=== PATIENT | female | born 1990 | race Caucasian/White ===

== ENCOUNTER 2019-07-19 07:30 | Inpatient (IN) | payer OTHER ==
[2019-07-19] MEDS ORDERED: GLYCOPYRROLATE 1 MG/5 ML VIAL ONE (08:16)
[2019-07-19] MEDS ORDERED: VECURONIUM BROMIDE INJ 10 MG VIAL IV ONE (08:16)
[2019-07-19] MEDS ORDERED: SUCCINYLCHOLINE CHLORIDE INJ 200 MG/10 ML VIAL ONE (08:16)
[2019-07-19] MEDS ORDERED: NEOSTIGMINE METHYLSULFATE 10 MG/10 ML VIAL ONE (08:16)
[2019-07-19 08:30] LABS: ABSOLUTE BASOPHILS # (AUTO) 0.1 10^3/uL (0.0-0.2); ABSOLUTE EOSINOPHILS # (AUTO) 0.2 10^3/uL (0.0-0.6); ABSOLUTE LYMPHOCYTES (AUTO) 2.6 10^3/uL (0.5-4.7); ABSOLUTE NEUT (AUTO) 12.8 10^3/uL (1.7-8.2); BASOPHILS % (AUTO) 0.4 % (0-2); EOSINOPHILS % (AUTO) 0.9 % (0-6); HEMATOCRIT 39.4 % (36.0-47.0); HEMOGLOBIN 13.4 g/dL (12.0-15.5); LYMPHOCYTES % (AUTO) 15.7 % (13-45); MEAN CORPUSCULAR HEMOGLOBIN 28.9 pg (27.0-33.4); MEAN CORPUSCULAR HGB CONC 33.9 g/dL (32.0-36.0); MEAN CORPUSCULAR VOLUME 85 fl (80-97); MONOCYTES % (AUTO) 5.8 % (3-13); PLATELET COUNT 349 10^3/uL (150-450); RED BLOOD COUNT 4.63 10^6/uL (3.72-5.28); RED CELL DISTRIBUTION WIDTH 12.9 % (11.5-14.0); SEGMENTED NEUTROPHILS % (AUTO) 77.2 % (42-78); TOTAL CELLS COUNTED % (AUTO) 100 %; WHITE BLOOD COUNT 16.6 10^3/uL (4.0-10.5)
[2019-07-19 08:51] LABS: APPEARANCE,URINE CLEAR; BILIRUBIN,URINE NEGATIVE (NEGATIVE); COLOR,URINE YELLOW; GLUCOSE, URINE NEGATIVE (NEGATIVE); KETONES,URINE NEGATIVE (NEGATIVE); LEUKOCYTE ESTERASE,URINE NEGATIVE (NEGATIVE); NITRITE,URINE NEGATIVE (NEGATIVE); PROTEIN,URINE NEGATIVE (NEGATIVE); URINE SPECIFIC GRAVITY 1.021; UROBILINOGEN,URINE NEGATIVE mg/dL (<2.0)
[2019-07-19 08:52] LABS: ALBUMIN 4.3 g/dL (3.5-5.0); ALKALINE PHOSPHATASE 79 U/L (38-126); ANION GAP 9 (5-19); ASPARTATE AMINO TRANSFERASE 28 U/L (14-36); BILIRUBIN,DIRECT 0.1 mg/dL (0.0-0.4); BILIRUBIN,TOTAL 0.9 mg/dL (0.2-1.3); BLOOD UREA NITROGEN 9 mg/dL (7-20); CALCIUM 9.5 mg/dL (8.4-10.2); CARBON DIOXIDE 26 mmol/L (22-30); CHLORIDE 104 mmol/L (98-107); GLUCOSE 108 mg/dL (75-110); POTASSIUM 4.3 mmol/L (3.6-5.0); TOTAL PROTEIN 7.9 g/dL (6.3-8.2)
--- NOTE | 2019-07-19 10:11 | ER Document Report ---
ED General - General Chief Complaint: Lower Abdominal Pain Stated Complaint: ABDOMINAL PAIN Time Seen by Provider: 07/19/19 08:28 Mode of Arrival: Ambulatory Information source: Patient Notes: This 29-year-old female presents to the emergency department with reports that last week she had some nausea vomiting fever but those symptoms went away and for the past 3 days she has had some right lower quad abdominal pain. She describes the pain as dull and achy. She reports the pain was so bad that it woke her up from sleep. She reports the pain started around the periumbilical and radiates down to the right lower quad now. She reports at first it radiated to the mid lower abdomen. She denies vaginal discharge/ vaginal pain/pain with void. Patient reports when she was like 9 or 10 years old she did have an appendicitis but they did not take the appendix out. She reports they treated it with medications. She denies reports last menstrual period was last week. Reports she has not had anything to eat or drink this morning. TRAVEL OUTSIDE OF THE [place] IN LAST 30 DAYS: No - HPI Onset: Last week Onset/Duration: Sudden, Persistent Quality of pain: Achy, Dull Associated symptoms: Fever, Nausea, Vomiting Exacerbated by: Supine Relieved by: Denies Similar symptoms previously: No Recently seen / treated by doctor: No - Related Data Allergies/Adverse Reactions: No Known Allergies Allergy (Verified 07/19/19 07:56) Past Medical History - General Information source: Patient Last Menstrual Period: 07/13/2019 - Social History Smoking Status: Never Smoker Chew tobacco use (# tins/day): No Frequency of alcohol use: None Drug Abuse: None Family History: None Patient has suicidal ideation: No Patient has homicidal ideation: No - Medical History Medical History: Negative Surgical Hx: Negative Review of Systems - Review of Systems Notes: Review HPI for review of systems., All other systems negative Physical Exam - Vital signs Vitals: Temp Pulse Resp BP Pulse Ox 98.0 F 102 H 18 140/74 H 100 07/19/19 07:34 07/19/19 07:34 07/19/19 07:34 07/19/19 07:34 07/19/19 07:34 - General General appearance: Appears well, Alert, Anxious In distress: None - HEENT Head: Normocephalic, Atraumatic Eyes: Normal Conjunctiva: Normal Extraocular movements intact: Yes Eyelashes: Normal Pupils: PERRL Ears: Normal External canal: Normal Tympanic membrane: Normal Mucous membranes: Moist Pharynx: Normal Neck: Normal, Supple. No: Lymphadenopathy - Respiratory Respiratory status: No respiratory distress Chest status: Nontender Breath sounds: Normal Chest palpation: Normal - Cardiovascular Rhythm: Regular Heart sounds: Normal auscultation Murmur: No - Abdominal Inspection: Normal Distension: No distension Bowel sounds: Normal Tenderness: Tender Organomegaly: No organomegaly Adult front & back diagram: 1 - Reports pain with palpation - Back Back: Normal, Nontender - Extremities General upper extremity: Normal ROM General lower extremity: Normal ROM - Neurological Neuro grossly intact: Yes Cognition: Normal Orientation: AAOx4 [place] Coma Scale Eye Opening: Spontaneous [place] Coma Scale Verbal: Oriented [place] Coma Scale Motor: Obeys Commands [place] Coma Scale Total: 15 Speech: Normal - Psychological Associated symptoms: Normal affect, Normal mood - Skin Skin Temperature: Warm Skin Moisture: Dry Skin Color: Normal Course - Re-evaluation Re-evalutation: 07/19/19 11:24 Patient with WBCs of 16.6. CT shows appendicitis. Patient instructed on results. Instructed on surgical consult. She verbalized understanding all instructions. Dr. Nelson consulted will be down to evaluate patient. Abdomen/Pelvis CT 07/19/19 09:01 IMPRESSION: Findings as above consistent and an acute appendicitis. There is no periappendiceal abscess. Laboratory 07/19/19 07/19/19 07/19/19 08:10 08:10 08:35 WBC 16.6 H RBC 4.63 Hgb 13.4 Hct 39.4 MCV 85 MCH 28.9 MCHC 33.9 RDW 12.9 Plt Count 349 Lymph % (Auto) 15.7 Rooks % (Auto) 5.8 Eos % (Auto) 0.9 Baso % (Auto) 0.4 Absolute Neuts (auto) 12.8 H Absolute Lymphs (auto) 2.6 Absolute Monos (auto) 1.0 Absolute Eos (auto) 0.2 Absolute Basos (auto) 0.1 Seg Neutrophils % 77.2 Sodium 139.1 Potassium 4.3 Chloride 104 Carbon Dioxide 26 Anion Gap 9 BUN 9 Creatinine 0.50 L Est GFR ( Amer) > 60 Est GFR (MDRD) Non-Af > 60 Glucose 108 Calcium 9.5 Total Bilirubin 0.9 Direct Bilirubin 0.1 Neonat Total Bilirubin Not Reportable Neonat Direct Bilirubin Not Reportable Neonat Indirect Bili Not Reportable AST 28 ALT 26 Alkaline Phosphatase 79 Total Protein 7.9 Albumin 4.3 Lipase 51.9 Urine Color YELLOW Urine Appearance CLEAR Urine pH 6.0 Ur Specific [place] 1.021 Urine Protein NEGATIVE Urine Glucose (UA) NEGATIVE Urine Ketones NEGATIVE Urine Blood SMALL H Urine Nitrite NEGATIVE Urine Bilirubin NEGATIVE Urine Urobilinogen NEGATIVE Ur Leukocyte Esterase NEGATIVE Urine WBC (Auto) 1 Urine RBC (Auto) 2 Squamous Epi Cells Auto <1 Urine Mucus (Auto) FEW Urine Ascorbic Acid NEGATIVE Urine HCG, Qual NEGATIVE 07/19/19 11:40 Dr. Nelson in the emergency department requesting fluids and Unasyn. 07/19/19 14:31 - Vital Signs Vital signs: Temp Pulse Resp BP Pulse Ox 97.8 F 102 H 18 125/81 99 07/19/19 11:25 07/19/19 11:25 07/19/19 11:25 07/19/19 11:25 07/19/19 11:25 - Laboratory Result Diagrams: 07/19/19 08:10 07/19/19 08:10 Laboratory results interpreted by me: 07/19/19 07/19/19 07/19/19 08:10 08:10 08:35 WBC 16.6 H Absolute Neuts (auto) 12.8 H Creatinine 0.50 L Urine Blood SMALL H - Diagnostic Test Radiology reviewed: Image reviewed, Reports reviewed - Consults DR NELSON Time consulted: 11:24 Reason for consultation: 07/19/19 11:24 appy Consulted provider: will come to ER Discharge - Discharge Clinical Impression: Right lower quadrant abdominal pain, Appendicitis Condition: Stable Disposition: ADMITTED INPATIENT Admitting Provider: Surgicalist Unit Admitted: OR
--- NOTE | 2019-07-19 11:06 | RADIOLOGY REPORT (SQ) ---
EXAM DESCRIPTION: CT ABD/PELVIS WITH IV ONLY COMPLETED DATE/TIME: 07/19/2019 10:46 am REASON FOR STUDY: RLQ pain ? appy COMPARISON: None. TECHNIQUE: CT scan of the abdomen and pelvis performed using helical scanning technique with dynamic intravenous contrast injection. No oral contrast. Images reviewed with lung, soft tissue, and bone windows. Reconstructed coronal and sagittal MPR images reviewed. Delayed images for evaluation of the urinary system also acquired. All images stored on PACS. All CT scanners at this facility use dose modulation, iterative reconstruction, and/or weight based d osing when appropriate to reduce radiation dose to as low as reasonably achievable (ALARA). [facility]: Dose Right [facility]: CareDose [facility]: Dose Right [facility]: Teradose 4D [facility]: [employer] CONTRAST TYPE AND DOSE: Contrast/concentration: Isovue 350.00 mg/ml; Total Contrast Delivered: 80.0 ml; Total Saline Delivered: 54.9 ml RENAL FUNCTION: GFR > 60. RADIATION DOSE: CT Rad equipment meets quality standard of care and radiation dose reduction techniq ues were employed. CTDIvol: 6.4 - 8.6 mGy. DLP: 767 mGy-cm. LIMITATIONS: None. FINDINGS: LOWER CHEST: No acute findings. LIVER: The morphology of the liver is non cirrhotic. The portal veins are patent. There is no hepat ic mass. SPLEEN: No splenomegaly or splenic mass. PANCREAS: No abnormality. GALLBLADDER: No abnormality that is apparent on CT. ADRENAL GLANDS: No mass or asymmetry. RIGHT KIDNEY AND URETER: No solid masses. No calcifications. No hydronephrosis or hydroureter. LEFT KIDNEY AND URETER: No solid masses. No calcifications. No hydronephrosis or hydroureter. AORTA AND VESSELS: No aneurysm or dissection of the abdominal aorta. RETROPERITONEUM: No retroperitoneal adenopathy, hemorrhage or mass. BOWEL AND PERITONEAL CAVITY: No bowel obstruction, bowel wall thickening or pericolonic/ perienteric inflammation. There is no mesenteric adenopathy or omental inflammation. APPENDIX: There is a 6 x 5 mm appendicolith at the appendiceal orifice. The appendix itself is dilat ed and there is periappendiceal inflammatory fat stranding. There is no periappendiceal abscess or f ree intraperitoneal air. PELVIS: There is a trace amount of free fluid in the cul de sac. There is no other abnormality of th e uterus or adnexa that is apparent on CT. The urinary bladder is partially distended. ABDOMINAL WALL: No masses or hernias. BONES: No acute findings. OTHER: No other finding. IMPRESSION: Findings as above consistent and an acute appendicitis. There is no periappendiceal abs cess. TECHNICAL DOCUMENTATION: JOB ID: [id number] Quality ID # [id number]: Final reports with documentation of one or more dose reduction techniques (e.g., Au tomated exposure control, adjustment of the mA and/or kV according to patient size, use of iterative reconstruction technique) 2010 [employer]- All Rights Reserved Reading location - IP/workstation name: [email or web address]
[2019-07-19] MEDS ORDERED: AMPICILLIN SOD/SULBACTAM 3 GM VIAL IV ONE (11:42)
[2019-07-19] MEDS ORDERED: NORMAL SALINE 1000 ML 1,000 ML IV ONE (11:42)
[2019-07-19] MEDS ORDERED: BUPIVACAINE HCL 0.25 % INJ/PF (2.5 MG/1 ML) 30 ML VIAL ONE (11:44)
[2019-07-19] MEDS ORDERED: RINGERS SOLUTION,LACTATED 1,000 ML IV PRN (11:49)
--- NOTE | 2019-07-19 11:54 | PDOC H&P ---
History of Present Illness Admission Date/PCP: July 19, 2019 Patient complains of: Abdominal pain, anorexia History of Present Illness: KIT GIBBONS is a 29 year old female Presents emergency department via ground rescue complaining of a week history of abdominal pain, periumbilical, radiating to right lower quadrant, associated with anorexia. Patient initially felt this was related to her period, which subsequently came and went, without resolution. Because of persisting pain right lower quadrant, she was seen in the emergency room where she was found to have right lower quadrant tenderness, leukocytosis of 16,[address] scan of the abdomen and pelvis performed without oral contrast revealed findings consistent with acute appendicitis, early phlegmon. Surgery was consulted, patient was advised admission. Of note patient has a remote history of appendicitis at age 10, by report, managed nonoperatively. She denies history of gastrointestinal problems, history of trauma. Past Medical History Medical History: None Past Surgical History Past Surgical History: Reports: None Social History Information Source: Patient Smoking Status: Never Smoker Electronic Cigarette use?: No Frequency of Alcohol Use: None Hx Recreational Drug Use: No Family History Parental Family History Reviewed: No Children Family History Reviewed: No Sibling(s) Family History Reviewed.: No Medication/Allergy Home Medications: No Home Medications 07/19/19 Allergies/Adverse Reactions: No Known Allergies Allergy (Verified 07/19/19 07:56) Review of Systems Constitutional: PRESENT: as per HPI Eyes: ABSENT: visual disturbances Ears: ABSENT: hearing changes Cardiovascular: ABSENT: chest pain, dyspnea on exertion, edema, orthropnea, palpitations Respiratory: ABSENT: cough, hemoptysis Gastrointestinal: PRESENT: as per HPI. ABSENT: other - Patient denies history of constipation Genitourinary: PRESENT: other - Denies dysuria Musculoskeletal: ABSENT: joint swelling Integumentary: ABSENT: rash, wounds Neurological: ABSENT: abnormal gait, abnormal speech, confusion, dizziness, focal weakness, syncope Endocrine: ABSENT: cold intolerance, heat intolerance, polydipsia, polyuria Hematologic/Lymphatic: ABSENT: easy bleeding, easy bruising Physical Exam Vital Signs: Temp Pulse Resp BP Pulse Ox 97.8 F 102 H 18 125/81 99 07/19/19 11:25 07/19/19 11:25 07/19/19 11:25 07/19/19 11:25 07/19/19 11:25 Intake & Output 07/18/19 07/19/19 07/20/19 06:59 06:59 06:59 Weight 70.4 kg General appearance: PRESENT: no acute distress Head exam: PRESENT: normocephalic Eye exam: PRESENT: EOMI Ear exam: PRESENT: normal external ear exam Mouth exam: PRESENT: dry mucosa Neck exam: PRESENT: full ROM Respiratory exam: PRESENT: clear to auscultation darrin Cardiovascular exam: PRESENT: RRR Pulses: PRESENT: normal carotid pulses, normal radial pulses, normal femoral pulses, normal dorsalis pedis pul GI/Abdominal exam: PRESENT: diminished bowel sounds, other - Distinct right lower quadrant tenderness with guarding; no umbilical hernia Rectal exam: PRESENT: deferred Extremities exam: PRESENT: full ROM Musculoskeletal exam: PRESENT: full ROM Neurological exam: PRESENT: oriented to person, oriented to place, oriented to time, oriented to situation Psychiatric exam: PRESENT: appropriate affect Skin exam: PRESENT: dry Results Laboratory Results: 07/19/19 08:10 07/19/19 08:10 07/19/19 07/19/19 07/19/19 08:10 08:10 08:35 WBC 16.6 H RBC 4.63 Hgb 13.4 Hct 39.4 MCV 85 MCH 28.9 MCHC 33.9 RDW 12.9 Plt Count 349 Seg Neutrophils % 77.2 Sodium 139.1 Potassium 4.3 Chloride 104 Carbon Dioxide 26 Anion Gap 9 BUN 9 Creatinine 0.50 L Est GFR ( Amer) > 60 Glucose 108 Calcium 9.5 Total Bilirubin 0.9 AST 28 Alkaline Phosphatase 79 Total Protein 7.9 Albumin 4.3 Lipase 51.9 Urine Color YELLOW Urine Appearance CLEAR Urine pH 6.0 Ur Specific [place] 1.021 Urine Protein NEGATIVE Urine Glucose (UA) NEGATIVE Urine Ketones NEGATIVE Urine Blood SMALL H Urine Nitrite NEGATIVE Ur Leukocyte Esterase NEGATIVE Urine WBC (Auto) 1 Urine RBC (Auto) 2 Impressions: Abdomen/Pelvis CT 07/19/19 09:01 IMPRESSION: Findings as above consistent and an acute appendicitis. There is no periappendiceal abscess. Assessment & Plan - Diagnosis (1) Appendicitis Is this a current diagnosis for this admission?: Yes Plan: Impression: Acute abdominal pain localized right lower quadrant tenderness leukocytosis, CT scan findings consistent with acute appendicitis. No evidence of sepsis, hemodynamic instability. Recommendations: 1. Admit, IV fluids, IV antibiotics, plan laparoscopic, possible open appendectomy. This was discussed with patient, as well as her adoptive parents. I reviewed the risk benefits and alternatives of planned procedure. Patient and family expressed her understanding and agreed to proceed. 2. Anticipate 24 hours today. Hopefully patient can return to regular activities in 1 week. - Time Time Spent: 30 to 50 Minutes Critical Time spent with patient: Less than 15 minutes Medications reviewed and adjusted accordingly: Yes Anticipated discharge: Home - Inpatient Certification Based on my medical assessment, after consideration of the patient's comorbidities, presenting symptoms, or acuity I expect that the services needed warrant INPATIENT care.: Yes I certify that my determination is in accordance with my understanding of Medicare's requirements for reasonable and necessary INPATIENT services [42 CFR 412.3e].: Yes Medical Necessity: Need For IV Fluids, Need for Pain Control, Need for IV Antibiotics, Need for Surgery
[2019-07-19] MEDS ORDERED: KETOROLAC TROMETHAMINE 60 MG/2 ML SDV ONE (12:10)
[2019-07-19] MEDS ORDERED: PROPOFOL INJ 200 MG/20 ML VIAL IV ONE (12:11)
[2019-07-19] MEDS ORDERED: MIDAZOLAM 2 MG/2 ML INJ ONE (12:11)
[2019-07-19] MEDS ORDERED: ONDANSETRON HCL INJ/PF 4 MG/2 ML SDV ONE (12:11)
[2019-07-19] MEDS ORDERED: DEXAMETHASONE SOD PHOSPHATE INJ 4 MG/1 ML VIAL ONE (12:11)
[2019-07-19] MEDS ORDERED: FENTANYL CITRATE INJ/PF 100 MCG/2 ML AMPUL ONE (12:11)
[2019-07-19] MEDS ORDERED: BUPIVACAINE HCL 0.25 % INJ/PF (2.5 MG/1 ML) 30 ML VIAL INJ ONE (12:37)
[2019-07-19] MEDS ORDERED: OXYCODONE-ACETAMINOPHEN 5-325 MG TABLET PO PRN ×2 (13:09)
[2019-07-19] MEDS ORDERED: PROMETHAZINE HCL INJ 25 MG/1 ML VIAL IV PRN ×2 (13:09)
[2019-07-19] MEDS ORDERED: DIPHENHYDRAMINE HCL 50 MG/ML VIAL IV PRN (13:09)
[2019-07-19] MEDS ORDERED: FENTANYL CITRATE INJ/PF 100 MCG/2 ML AMPUL IV PRN ×3 (13:09)
[2019-07-19] MEDS ORDERED: MEPERIDINE HCL/PF INJ 25 MG/1 ML DISP.SYRIN IV PRN (13:09)
[2019-07-19] MEDS ORDERED: MORPHINE SULFATE 10 MG/ML INJ IV PRN (13:09)
[2019-07-19] MEDS ORDERED: ONDANSETRON HCL INJ/PF 4 MG/2 ML SDV IV PRN (13:09)
[2019-07-19] MEDS ORDERED: MORPHINE SULFATE 10 MG/ML INJ ONE (13:24)
[2019-07-19] MEDS ORDERED: BUPIVACAINE INJ/PF LIPOSOME/PF 266 MG/20 ML SDV ONE (14:20)
[2019-07-19] MEDS ORDERED: BUPIVACAINE INJ/PF LIPOSOME/PF 266 MG/20 ML SDV INJ ONE (14:25)
[2019-07-19] MEDS ORDERED: PROMETHAZINE HCL INJ 25 MG/1 ML VIAL ONE (14:59)
--- NOTE | 2019-07-19 15:06 | Operative Report ---
Operative Report DATE OF SURGERY: 07/19/19 PREOPERATIVE DIAGNOSIS: Acute appendicitis POSTOPERATIVE DIAGNOSIS: Acute and chronic appendicitis with perforation OPERATION: 1. Laparoscopic conversion to open exploration. 2. Cecectomy with stapled ileo-ascending colostomy. 3. Drainage of pelvis SURGEON: PRASHANT DAVID ANESTHESIA: GA TISSUE REMOVED OR ALTERED: Cecum COMPLICATIONS: None ESTIMATED BLOOD LOSS: 15 cc INTRAOPERATIVE FINDINGS: See below PROCEDURE: Indication for operation: The patient is a 29-year-old white female with a remote history of appendicitis managed nonoperatively approximately 10 years ago who presents the emergency department complaining of a week history of abdominal pain anorexia right lower quadrant tenderness leukocytosis and CT scan findings consistent with appendicolith, and acute appendicitis with early phlegmon. She was offered laparoscopic, possible open appendectomy. Risk benefits and alternatives to the planned procedure explained to the patient as well as her adoptive parents including bleeding, infection, need for additional surgery. Belen shankar expressed her understanding and agreed to proceed. The patient was taken to the main operating room where general anesthesia was induced. Mijares catheter was inserted and a minimal amount of clear yellow urine drained. The abdomen was exposed, clipped of hair, prepped draped sterile fashion. Instrumentation was set up for laparoscopic appendectomy. Surgical plan surgical timeout were conducted. Sites were marked for 3 port laparoscopy in the super umbilical, suprapubic and the left lower quadrant positions. Skin was anesthetized with quarter percent Marcaine. A supraumbilical vertical incision was made with a knife, Veress needle inserted the peritoneal cavity pneumoperitoneum was established. The Veress needle was removed and a 5 mm ports inserted 5 mm scope was inserted. Under direct visualization 2 additional ports were placed 1 5 mm in the suprapubic position, 12 mm left lower quadrant. Findings were significant for no evidence of intraperitoneal injury, bleeding or viscus injury. We visualized the peritoneal cavity carefully. Stomach gallbladder and intestines all appeared unremarkable. The cecum was fixed to the lateral pelvic sidewall. Using combination of gentle suction and laparoscopic retraction, we swept the cecum medially and cephalad, mobilizing the infra cecal peritoneal attachments. This was done with LigaSure device. I now rotated the cecum 180 degrees cephalad to reveal a retrocecal appendix which was heavily bio bonded to the retrocecal position. There was a moderate amount of pus that was evacuated during this maneuver. There was also a phlegmon involving the ileocecal mesocolon. I made a strong effort to mobilize the cecum off of the appendix but it was so stuck this could not be accomplished. Multiple maneuvers were attempted but were unsuccessful. I felt that an ileocecal ectomy was indicated. Using the LigaSure device, I divided the lateral pelvic sidewall attachments to the ascending colon, along the white line of Toldt. The ileocecal mesentery was also mobilized using the LigaSure device. At this point I felt that we could safely bring the ileocecum out through a small midline incision and so this was affected. The skin anesthetized 1% Marcaine from the umbilicus inferiorly to the pelvis. Approximately 8 cm long skin incision made with a fresh #10 blade, subcutaneous tissue and anterior and posterior rectus sheath divided accordingly. We installed a Shamar moderate sized wound protector, and brought the ileocecal anatomy into the ex vivo position. A suitable site for transection of the terminal ileum was made just proximal to the ileocecal valve. The small bowel was divided with the EUGENIO 75 stapler. We now mobilized the omentum off of the cecum and ascending colon. Several centimeters of a sending colon were mobilized using a combination of gentle blunt and electrocautery dissection. Of note the phlegmon secondary to the inflamed appendix involved the ileocecal mesocolon. A suitable site for division of the ascending colon was chosen approximately 6cm proximal to the takeoff of the appendix. The colon was divided with a blue load of the EUGENIO 75 stapler. We now came underneath the phlegmon involving the ileocecal mesocolon with multiple clamps. The specimen was taken off of the field and placed on the back table. Vascular pedicles were tied off with 2 oh and 3 oh ligatures of Vicryl. Bleeding was minimal. We inspected and visualized the residual small bowel as well as a sending colon and there appeared to be no evidence of malignancy or Crohn's disease. I felt that a [id number] functional end and ileo-a sending colostomy would be appropriate. These 2 bowel lemos were brought adjacent to each other, multiple 3-0 sutures were placed along the antimesenteric border, and the terminal ileum and proximal colon were opened with Lopez scissors. The EUGENIO-75 stapler was then deployed to affect a common channel anastomosis in a [id number] fashion. There was no significant bleeding and the common channel was patent. We now closed the common ileotomy and colotomy with a single firing of the TA 60 stapler. She was healthy well vascularized and not under tension. The anastomosis was felt to be patent and very generous. We did not close the mesenteric rent. We irrigated the peritoneal cavity out carefully, allow the ileocecal anastomosis to return the peritoneal cavity, remove the Shamar device placed a drain through the left lower quadrant port site, attached to the skin with a 2-0 Prolene suture. Of note this was a large Abhi drain. Sponge and needle counts are correct. The drain was placed in the pelvis. We now closed the laparotomy incision with 2-0 PDS sutures, skin approximated with padmini over a fragment of a latex drain coming out of the inferior aspect of the midline incision as a wick. All incisions then approximated with padmini. 20 cc of Exparel deployed in the subcutaneous tissues. Patient tolerated procedure well, extubated, taken recovery room in stable condition.
[2019-07-19] MEDS: ONDANSETRON HCL INJ/PF 4 MG/2 ML SDV IV PRN ×2 (17:15→21:49)
[2019-07-19] MEDS: ACETAMINOPHEN 1,000 MG/100 ML RTUPB IV SCH ×2 (17:15→23:28)
[2019-07-19] MEDS: AMPICILLIN SODIUM/SULBACTAM NA 3 GM in NORMAL SALINE 100 ML IV SCH ×2 (17:39→21:15)
[2019-07-19] MEDS ORDERED: ACETAMINOPHEN INJ/PF 1000 MG/100 ML SDV IV SCH (18:00)
[2019-07-19] MEDS ORDERED: AMPICILLIN SOD/SULBACTAM 3 GM VIAL ONE (21:00)
[2019-07-19] MEDS ORDERED: KETOROLAC TROMETHAMINE 10 MG TABLET ONE (21:00)
[2019-07-19] MEDS ORDERED: AMPICILLIN SODIUM/SULBACTAM NA 3 GM in NORMAL SALINE 100 ML IV SCH (22:00)
[2019-07-19] MEDS: KETOROLAC TROMETHAMINE 10 MG TABLET PO PRN (22:00)
[2019-07-20] MEDS: KETOROLAC TROMETHAMINE 10 MG TABLET PO PRN (04:10)
[2019-07-20] MEDS: ACETAMINOPHEN 1,000 MG/100 ML RTUPB IV SCH ×4 (05:03→23:55)
[2019-07-20] MEDS: AMPICILLIN SODIUM/SULBACTAM NA 3 GM in NORMAL SALINE 100 ML IV SCH ×3 (06:10→21:49)
[2019-07-20] MEDS ORDERED: IBUPROFEN 400 MG TABLET PO PRN (08:54)
--- NOTE | 2019-07-20 09:01 | PDOC PROGRESS REPORT ---
Subjective Progress Note for:: 07/20/19 Subjective:: Postoperative pain some nausea. Reason For Visit: ACUTE APPENDICITIS Physical Exam Vital Signs: Temp Pulse Resp BP Pulse Ox 97.9 F 99 16 132/68 H 100 07/20/19 07:09 07/20/19 07:09 07/20/19 07:09 07/20/19 07:09 07/20/19 07:09 Intake & Output 07/19/19 07/20/19 07/21/19 06:59 06:59 06:59 Intake Total 2400 100 Output Total 2140 Balance 260 100 Weight 70.4 kg General appearance: PRESENT: no acute distress, cooperative Respiratory exam: PRESENT: clear to auscultation darrin Cardiovascular exam: PRESENT: RRR GI/Abdominal exam: PRESENT: other - Mildly distended, soft, mild diffuse abdominal tenderness without peritoneal signs. Results Laboratory Results: 07/19/19 08:10 07/19/19 08:10 Impressions: Abdomen/Pelvis CT 07/19/19 09:01 IMPRESSION: Findings as above consistent and an acute appendicitis. There is no periappendiceal abscess. Assessment & Plan - Diagnosis (1) Appendicitis Is this a current diagnosis for this admission?: Yes Plan: Status post ileocecectomy. Postoperative pain. Will add morphine to her pain regimen. DC Mijares catheter. Hold off diet until she feels better and less nauseated. Encourage ambulation
[2019-07-20] MEDS: MORPHINE SULFATE 10 MG/ML INJ IV PRN ×2 (10:32→16:44)
[2019-07-20] MEDS: RINGERS SOLUTION,LACTATED 1,000 ML IV PRN ×2 (10:34→19:30)
[2019-07-20] MEDS: FAMOTIDINE INJ/PF 20 MG/2 ML SDV IV SCH (19:30)
[2019-07-21] MEDS: ACETAMINOPHEN 1,000 MG/100 ML RTUPB IV SCH (05:28)
[2019-07-21] MEDS: FAMOTIDINE INJ/PF 20 MG/2 ML SDV IV SCH (05:29)
[2019-07-21] MEDS: AMPICILLIN SODIUM/SULBACTAM NA 3 GM in NORMAL SALINE 100 ML IV SCH ×3 (05:58→21:00)
[2019-07-21] MEDS: RINGERS SOLUTION,LACTATED 1,000 ML IV PRN (06:03)
[2019-07-21 06:08] LABS: ABSOLUTE BASOPHILS # (AUTO) 0.1 10^3/uL (0.0-0.2); ABSOLUTE EOSINOPHILS # (AUTO) 0.1 10^3/uL (0.0-0.6); ABSOLUTE LYMPHOCYTES (AUTO) 1.7 10^3/uL (0.5-4.7); ABSOLUTE MONOCYTES (AUTO) 0.8 10^3/uL (0.1-1.4); ABSOLUTE NEUT (AUTO) 10.6 10^3/uL (1.7-8.2); BASOPHILS % (AUTO) 0.5 % (0-2); EOSINOPHILS % (AUTO) 0.8 % (0-6); HEMATOCRIT 35.1 % (36.0-47.0); LYMPHOCYTES % (AUTO) 12.7 % (13-45); MEAN CORPUSCULAR HEMOGLOBIN 28.8 pg (27.0-33.4); MEAN CORPUSCULAR HGB CONC 34.1 g/dL (32.0-36.0); MEAN CORPUSCULAR VOLUME 84 fl (80-97); MONOCYTES % (AUTO) 6.2 % (3-13); PLATELET COUNT 283 10^3/uL (150-450); RED BLOOD COUNT 4.16 10^6/uL (3.72-5.28); RED CELL DISTRIBUTION WIDTH 13.3 % (11.5-14.0); SEGMENTED NEUTROPHILS % (AUTO) 79.8 % (42-78); TOTAL CELLS COUNTED % (AUTO) 100 %; WHITE BLOOD COUNT 13.2 10^3/uL (4.0-10.5)
[2019-07-21 06:22] LABS: ANION GAP 10 (5-19); BLOOD UREA NITROGEN 8 mg/dL (7-20); CALCIUM 8.7 mg/dL (8.4-10.2); CARBON DIOXIDE 27 mmol/L (22-30); CHLORIDE 102 mmol/L (98-107); GLUCOSE 72 mg/dL (75-110); POTASSIUM 3.9 mmol/L (3.6-5.0)
[2019-07-21] MEDS ORDERED: HYDROCODONE/ACETAMINOPHEN 10-325 MG TABLET PO PRN (09:27)
--- NOTE | 2019-07-21 09:30 | PDOC PROGRESS REPORT ---
Subjective Progress Note for:: 07/21/19 Reason For Visit: ACUTE APPENDICITIS Physical Exam Vital Signs: Temp Pulse Resp BP Pulse Ox 98.1 F 88 16 125/71 99 07/21/19 07:45 07/21/19 07:45 07/21/19 07:45 07/21/19 07:45 07/21/19 07:45 Intake & Output 07/20/19 07/21/19 07/22/19 06:59 06:59 06:59 Intake Total 2400 2493 Output Total 2140 1555 10 Balance 260 938 -10 Weight 70.4 kg 70.7 kg Results Laboratory Results: 07/21/19 05:42 07/21/19 05:42 07/21/19 07/21/19 05:42 05:42 WBC 13.2 H RBC 4.16 Hgb 12.0 Hct 35.1 L MCV 84 MCH 28.8 MCHC 34.1 RDW 13.3 Plt Count 283 Seg Neutrophils % 79.8 H Sodium 138.7 Potassium 3.9 Chloride 102 Carbon Dioxide 27 Anion Gap 10 BUN 8 Creatinine 0.51 L Est GFR ( Amer) > 60 Glucose 72 L Calcium 8.7 Impressions: Abdomen/Pelvis CT 07/19/19 09:01 IMPRESSION: Findings as above consistent and an acute appendicitis. There is no periappendiceal abscess. Assessment & Plan - Diagnosis (1) Appendicitis Qualifiers: Appendicitis type: acute appendicitis Acute appendicitis type: with l ocalized peritonitis Appendicitis gangrene presence: with gangrene Appendicitis perforation presence: unspecified whether perforation present Appendicitis abscess presence: with abscess Qualified Code(s): K35.31 - Acute appendicitis with localized peritonitis and gangrene, without perforation; K35.33 - Acute appendicitis with perforation and localized peritonitis, with abscess Is this a current diagnosis for this admission?: Yes - Plan Summary Plan Summary: This is a 29-year-old female status post lap converted to open ileocecectomy for severe acute appendicitis. The patient is doing reasonably well today. She is passing flatus, and she is afebrile. She reports that she is hungry. She still reports significant amounts of pain. I will transition her to oral pain medications. Her white blood cell count is improving. Continue with intravenous antibiotics. Reji drain was removed today at the bedside. Okay to shower. I have encouraged her to ambulate in the hallway, deep breathe, and cough.
[2019-07-21] MEDS: FAMOTIDINE 20 MG TABLET PO SCH ×2 (10:07→21:00)
[2019-07-21] MEDS: IBUPROFEN 800 MG TABLET PO SCH ×2 (13:14→17:34)
[2019-07-22] MEDS: AMPICILLIN SODIUM/SULBACTAM NA 3 GM in NORMAL SALINE 100 ML IV SCH ×3 (06:59→21:08)
[2019-07-22] MEDS: IBUPROFEN 800 MG TABLET PO SCH ×3 (08:58→17:06)
[2019-07-22] MEDS: FAMOTIDINE 20 MG TABLET PO SCH ×2 (08:59→21:07)
--- NOTE | 2019-07-22 09:29 | PDOC PROGRESS REPORT ---
Subjective Progress Note for:: 07/22/19 Subjective:: Feels better. Still having some abdominal pain. Reason For Visit: ACUTE APPENDICITIS Physical Exam Vital Signs: Temp Pulse Resp BP Pulse Ox 98.2 F 76 18 122/69 100 07/22/19 08:00 07/22/19 08:00 07/22/19 08:00 07/22/19 08:00 07/22/19 08:00 Intake & Output 07/21/19 07/22/19 07/23/19 06:59 06:59 06:59 Intake Total 2493 1400 Output Total 1555 70 Balance 938 1330 Weight 70.7 kg 70.5 kg General appearance: PRESENT: no acute distress, cooperative Respiratory exam: PRESENT: clear to auscultation darrin Cardiovascular exam: PRESENT: RRR GI/Abdominal exam: PRESENT: other - Soft, nondistended, mild diffuse abdominal tenderness without peritoneal signs. Wound clean dry and intact with no erythema other than a small opening at the inferior pole. Drain output is slightly turbid Extremities exam: PRESENT: other - No swelling and no tenderness Results Laboratory Results: 07/21/19 05:42 07/21/19 05:42 Impressions: Abdomen/Pelvis CT 07/19/19 09:01 IMPRESSION: Findings as above consistent and an acute appendicitis. There is no periappendiceal abscess. Assessment & Plan - Diagnosis (1) Appendicitis Qualifiers: Appendicitis type: acute appendicitis Acute appendicitis type: with localized peritonitis Appendicitis gangrene presence: with gangrene Appendicitis perforation presence: unspecified whether perforation present Appendicitis abscess presence: with abscess Qualified Code(s): K35.31 - Acute appendicitis with localized peritonitis and gangrene, without perforation; K35.33 - Acute appendicitis with perforation and localized peritonitis, with abscess Is this a current diagnosis for this admission?: Yes Plan: Status post ileocecectomy. Patient appears to be improving. We will keep drain in for right now. Likely discharge patient home tomorrow. Encouraged ambulation.
[2019-07-23] MEDS: ONDANSETRON HCL INJ/PF 4 MG/2 ML SDV IV PRN ×4 (00:30→20:06)
[2019-07-23] MEDS ORDERED: NORMAL SALINE 1000 ML 1,000 ML IV ONE (03:15)
[2019-07-23] MEDS ORDERED: PROMETHAZINE HCL INJ 25 MG/1 ML VIAL IV ONE ×2 (03:15→11:30)
[2019-07-23 03:36] LABS: HEMATOCRIT 36.9 % (36.0-47.0); HEMOGLOBIN 12.6 g/dL (12.0-15.5); MEAN CORPUSCULAR HEMOGLOBIN 28.8 pg (27.0-33.4); MEAN CORPUSCULAR HGB CONC 34.3 g/dL (32.0-36.0); MEAN CORPUSCULAR VOLUME 84 fl (80-97); PLATELET COUNT 358 10^3/uL (150-450); RED BLOOD COUNT 4.38 10^6/uL (3.72-5.28); RED CELL DISTRIBUTION WIDTH 13.2 % (11.5-14.0); WHITE BLOOD COUNT 12.2 10^3/uL (4.0-10.5)
[2019-07-23 04:13] LABS: ALBUMIN 3.2 g/dL (3.5-5.0); ALKALINE PHOSPHATASE 62 U/L (38-126); ANION GAP 10 (5-19); ASPARTATE AMINO TRANSFERASE 17 U/L (14-36); BILIRUBIN,DIRECT 0.1 mg/dL (0.0-0.4); BILIRUBIN,TOTAL 0.5 mg/dL (0.2-1.3); BLOOD UREA NITROGEN 9 mg/dL (7-20); CALCIUM 8.4 mg/dL (8.4-10.2); CARBON DIOXIDE 25 mmol/L (22-30); CHLORIDE 104 mmol/L (98-107); GLUCOSE 120 mg/dL (75-110); POTASSIUM 3.8 mmol/L (3.6-5.0); TOTAL PROTEIN 6.2 g/dL (6.3-8.2)
[2019-07-23] MEDS: NORMAL SALINE 1000 ML 1,000 ML IV PRN ×2 (05:08→19:35)
[2019-07-23] MEDS: AMPICILLIN SODIUM/SULBACTAM NA 3 GM in NORMAL SALINE 100 ML IV SCH ×3 (06:48→21:35)
--- NOTE | 2019-07-23 07:18 | RADIOLOGY REPORT (SQ) ---
EXAM DESCRIPTION: XR ABDOMEN 2 VIEWS SUPINE ERECT COMPLETED DATE/TME: 07/23/2019 00:00 CLINICAL HISTORY: nausea/vomiting/ open appy on 07/19/2019 COMPARISON: 07/19/2019 FINDINGS: Bowel: Mildly prominent loops of small bowel with air identified in the colon. Peritoneum: No free intraperitoneal air identified. Bones: No acute osseous abnormalities. Other: Lower abdominal pain. Subcutaneous padmini overlie the lower abdomen. IMPRESSION: 1. Findings suggest mild postoperative ileus.
[2019-07-23] MEDS ORDERED: DEXTROSE 50%-WATER 25 GM/50 ML DISP.SYRIN IV PRN ×2 (08:02)
[2019-07-23] MEDS ORDERED: GLUCAGON,HUMAN RECOMB 1 MG INJ SUBCUT PRN (08:02)
[2019-07-23] MEDS ORDERED: DEXTROSE 40% GEL 15 GM TUBE PO PRN ×2 (08:02)
[2019-07-23] MEDS: IBUPROFEN 800 MG TABLET PO SCH ×3 (08:09→16:37)
[2019-07-23] MEDS: FAMOTIDINE 20 MG TABLET PO SCH ×2 (10:37→21:35)
--- NOTE | 2019-07-23 11:02 | PDOC PROGRESS REPORT ---
Subjective Progress Note for:: 07/23/19 Subjective:: Nausea and vomiting last night. Feels much better this morning. She describes symptoms of irritable bowel syndrome in the past and she feels that last night she experienced similar symptoms as to what she has been experiencing at home. She has been having bowel movements. Her nausea has resolved this morning. She has only mild diffuse abdominal pain today. Reason For Visit: ACUTE APPENDICITIS Physical Exam Vital Signs: Temp Pulse Resp BP Pulse Ox 97.7 F 95 18 141/85 H 100 07/23/19 05:09 07/23/19 05:09 07/23/19 05:09 07/23/19 05:09 07/23/19 05:09 Intake & Output 07/21/19 07/22/19 07/23/19 06:59 06:59 06:59 Intake Total 2493 1400 300 Output Total 1555 70 20 Balance 938 1330 280 Weight 70.7 kg 70.5 kg General appearance: PRESENT: no acute distress, cooperative Respiratory exam: PRESENT: clear to auscultation darrin Cardiovascular exam: PRESENT: RRR GI/Abdominal exam: PRESENT: other - Soft, nondistended, very mild diffuse abdominal tenderness improved from yesterday. Wounds are clean dry and intact other than the very lower pole of her midline wound. There is no erythema. Drain output is still turbid. Results Laboratory Results: 07/23/19 03:28 07/23/19 03:28 07/23/19 07/23/19 03:28 03:28 WBC 12.2 H RBC 4.38 Hgb 12.6 Hct 36.9 MCV 84 MCH 28.8 MCHC 34.3 RDW 13.2 Plt Count 358 Sodium 138.6 Potassium 3.8 Chloride 104 Carbon Dioxide 25 Anion Gap 10 BUN 9 Creatinine 0.49 L Est GFR ( Amer) > 60 Glucose 120 H Calcium 8.4 Total Bilirubin 0.5 AST 17 Alkaline Phosphatase 62 Total Protein 6.2 L Albumin 3.2 L Impressions: Abdomen/Pelvis CT 07/19/19 09:01 IMPRESSION: Findings as above consistent and an acute appendicitis. There is no periappendiceal abscess. Assessment & Plan - Diagnosis (1) Appendicitis Qualifiers: Appendicitis type: acute appendicitis Acute appendicitis type: with localized peritonitis Appendicitis gangrene presence: with gangrene Ap pendicitis perforation presence: unspecified whether perforation present Appendicitis abscess presence: with abscess Qualified Code(s): K35.31 - Acute appendicitis with localized peritonitis and gangrene, without perforation; K35.33 - Acute appendicitis with perforation and localized peritonitis, with abscess Is this a current diagnosis for this admission?: Yes Plan: Status post ileocecectomy. Multiple episodes of nausea and vomiting last night. Abdominal x-rays are unremarkable. IV fluids resumed. Laboratory work remarkable for persistent leukocytosis. Continue IV antibiotics. We will keep n.p.o. for now in light of her nausea and vomiting last night. If she has recurrent symptoms today we will obtain a CT scan.
--- NOTE | 2019-07-23 11:04 | PDOC PROGRESS REPORT ---
Subjective Progress Note for:: 07/23/19 Subjective:: Began to feel nauseated with abdominal bloating this morning. Reason For Visit: ACUTE APPENDICITIS Physical Exam Vital Signs: Temp Pulse Resp BP Pulse Ox 98.4 F 86 14 107/62 98 07/23/19 08:45 07/23/19 08:45 07/23/19 08:45 07/23/19 08:45 07/23/19 08:45 Intake & Output 07/22/19 07/23/19 07/24/19 06:59 06:59 06:59 Intake Total 1400 1550 100 Output Total 70 80 50 Balance 1330 1470 50 Weight 70.5 kg General appearance: PRESENT: no acute distress, cooperative Respiratory exam: PRESENT: clear to auscultation darrin Cardiovascular exam: PRESENT: RRR GI/Abdominal exam: PRESENT: other - Soft, mildly distended, mild diffuse abdominal tenderness without peritoneal signs. Results Laboratory Results: 07/23/19 03:28 07/23/19 03:28 07/23/19 07/23/19 03:28 03:28 WBC 12.2 H RBC 4.38 Hgb 12.6 Hct 36.9 MCV 84 MCH 28.8 MCHC 34.3 RDW 13.2 Plt Count 358 Sodium 138.6 Potassium 3.8 Chloride 104 Carbon Dioxide 25 Anion Gap 10 BUN 9 Creatinine 0.49 L Est GFR ( Amer) > 60 Glucose 120 H Calcium 8.4 Total Bilirubin 0.5 AST 17 Alkaline Phosphatase 62 Total Protein 6.2 L Albumin 3.2 L Impressions: Abdomen/Pelvis CT 07/19/19 09:01 IMPRESSION: Findings as above consistent and an acute appendicitis. There is no periappendiceal abscess. Abdomen X-Ray 07/23/19 00:00 IMPRESSION: 1. Findings suggest mild postoperative ileus. Assessment & Plan - Diagnosis (1) Appendicitis Qualifiers: Appendicitis type: acute appendicitis Acute appendicitis type: with localized peritonitis Appendicitis gangrene presence: with gangrene Appendicitis perforation presence: unspecified whether perforation present Appendicitis abscess presence: with abscess Qualified Code(s): K35.31 - Acute appendicitis with localized peritonitis and gangrene, without perforation; K35.33 - Acute appendicitis with perforation and localized peritonitis, with abscess Is this a current diagnosis for this admission?: Yes Plan: Was looking better initially this morning however her nausea has returned. Will obtain a abdominal pelvic CT scan with oral and IV contrast.
--- NOTE | 2019-07-23 16:46 | RADIOLOGY REPORT (SQ) ---
EXAM DESCRIPTION: CT ABD/PELVIS WITH IV ORAL COMPLETED DATE/TIME: 07/23/2019 4:25 pm REASON FOR STUDY: Nausea vomiting after ileocecectomy COMPARISON: 07/19/2019 TECHNIQUE: CT scan of the abdomen and pelvis performed using helical scanning technique with dynamic intravenous contrast injection. Oral contrast. Images reviewed with lung, soft tissue, and bone win dows. Reconstructed coronal and sagittal MPR images reviewed. Delayed images for evaluation of the ur inary system also acquired. All images stored on PACS. All CT scanners at this facility use dose modulation, iterative reconstruction, and/or weight based d osing when appropriate to reduce radiation dose to as low as reasonably achievable (ALARA). [facility]: Dose Right [facility]: CareDose [facility]: Dose Right [facility]: Teradose 4D [facility]: Uniphore CONTRAST TYPE AND DOSE: contrast/concentration: Isovue 350.00 mg/ml; Total Contrast Delivered: 80.0 ml; Total Saline Delivered: 48.0 ml RENAL FUNCTION: GFR > 60. RADIATION DOSE: CT Rad equipment meets quality standard of care and radiation dose reduction techniq ues were employed. CTDIvol: 7.1 - 9.6 mGy. DLP: 837 mGy-cm.. LIMITATIONS: None. FINDINGS: LOWER CHEST: No significant findings. No nodules or infiltrates. LIVER: Normal size. No masses. No dilated ducts. SPLEEN: Normal size. No focal lesions. PANCREAS: No masses. No significant calcifications. No adjacent inflammation or peripancreatic fluid collections. Pancreatic duct not dilated. GALLBLADDER: No identified stones by CT criteria. No inflammatory changes to suggest cholecystitis. ADRENAL GLANDS: No significant masses or asymmetry. RIGHT KIDNEY AND URETER: No solid masses. No significant calcifications. No hydronephrosis or hyd roureter. LEFT KIDNEY AND URETER: No solid masses. No significant calcifications. No hydronephrosis or hydr oureter. AORTA AND VESSELS: No aneurysm. No dissection. Renal arteries, SMA, celiac without stenosis. RETROPERITONEUM: No retroperitoneal adenopathy, hemorrhage or masses. BOWEL AND PERITONEAL CAVITY: Anastomosis ascending colon. Gas fluid levels within nondilated loops o f small bowel in the left lower quadrant. Gas and fecal material within nondilated colon. Percutane ous drain in the pelvis from a left lower quadrant anterior approach. No free air. APPENDIX: Surgically absent. PELVIS: Small amount of free fluid. Nondependent gas in the urinary bladder. ABDOMINAL WALL: Midline skin padmini. BONES: No significant or acute findings. OTHER: No other significant finding. IMPRESSION: Postoperative ileus. No evidence of obstruction. TECHNICAL DOCUMENTATION: JOB ID: [id number] Quality ID # [id number]: Final reports with documentation of one or more dose reduction techniques (e.g., Au tomated exposure control, adjustment of the mA and/or kV according to patient size, use of iterative reconstruction technique) 2010 [employer]- All Rights Reserved Reading location - IP/workstation name: [email or web address]
[2019-07-24] MEDS: NORMAL SALINE 1000 ML 1,000 ML IV PRN (06:22)
[2019-07-24] MEDS: AMPICILLIN SODIUM/SULBACTAM NA 3 GM in NORMAL SALINE 100 ML IV SCH (06:22)
[2019-07-24] MEDS: FAMOTIDINE 20 MG TABLET PO SCH (09:41)
[2019-07-24] MEDS: IBUPROFEN 800 MG TABLET PO SCH ×3 (09:53→18:00)
--- NOTE | 2019-07-24 11:53 | PDOC PROGRESS REPORT ---
Subjective Progress Note for:: 07/24/19 Subjective:: Patient feeling some better, skittish about taking p.o. Reason For Visit: ACUTE APPENDICITIS Physical Exam Vital Signs: Temp Pulse Resp BP Pulse Ox 97.7 F 85 16 105/55 L 99 07/24/19 08:03 07/24/19 08:03 07/24/19 08:03 07/24/19 08:03 07/24/19 08:03 Intake & Output 07/23/19 07/24/19 07/25/19 06:59 06:59 06:59 Intake Total 1550 2400 100 Output Total 80 425 70 Balance 1470 1975 30 General appearance: PRESENT: no acute distress GI/Abdominal exam: PRESENT: other - All dressings removed. Open area midline incision clean; left lower quadrant drain removed. Results Laboratory Results: 07/23/19 03:28 07/23/19 03:28 Impressions: Abdomen X-Ray 07/23/19 00:00 IMPRESSION: 1. Findings suggest mild postoperative ileus. Abdomen/Pelvis CT 07/23/19 00:00 IMPRESSION: Postoperative ileus. No evidence of obstruction. Assessment & Plan - Diagnosis (1) Appendicitis Qualifiers: Appendicitis type: acute appendicitis Acute appendicitis type: with localized peritonitis Appendicitis gangrene presence: with gangrene Appendicitis perforation presence: unspecified whether perforation present Appendicitis abscess presence: with abscess Qualified Code(s): K35.31 - Acute appendicitis with localized peritonitis and gangrene, without perforation; K35.33 - Acute appendicitis with perforation and localized peritonitis, with abscess Is this a current diagnosis for this admission?: Yes (2) Acute appendicitis Is this a current diagnosis for this admission?: Yes Plan: Impression: Acute appendicitis superimposed on chronic, with phlegmon, now 5 days status post exploratory laparotomy, ileocecal ectomy, doing reasonably well, drain out Mijares out tolerating p.o. Recommendations: 1. We will discontinue IV antibiotics 2. We will advance diet and get patient in shower 3. Dissipate discharge in the next 24 hours. - Time Time Spent: 30 to 50 Minutes Medications reviewed and adjusted accordingly: Yes Anticipated discharge: Home
[2019-07-24] MEDS ORDERED: KETOROLAC TROMETHAMINE INJ/PF 30 MG/1 ML SDV IV PRN (11:54)
[2019-07-24 18:51] VITALS: BP 141/85
--- NOTE | 2019-07-24 19:36 | PDOC DISCHARGE SUMMARY ---
General - Admit/Disc Date/PCP Admission Date/Primary Care Provider: 07/19/19 11:55 Discharge Date: 07/24/19 - Discharge Diagnosis Final Diagnosis: Acute superimposed on chronic appendicitis - Assessment Summary: The patient is a 29-year-old female who presents emergency department with acute onset abdominal pain localized to right lower quadrant, focal tenderness in the right lower quadrant, leukocytosis and CT scan findings consistent with acute appendicitis. Patient has a remote history of appendicitis managed nonoperatively. The patient was admitted to the acute care surgery service, taken to the operating room by Dr. Nelson and underwent laparoscopic converted to open exploration, ileocectomy for acute superimposed on chronic appendicitis with phlegmon. Patient had 2 drains placed one in the wound and one in left lower quadrant. She tolerated the operation well and had no postoperative complications. Slowly her Mijares catheter and NG tube removed. She was eventually started on a clear liquid diet although she was slow to advance. She had no postoperative complications. By the fourth postoperative day she was tolerating a diet, fluids discontinued intravenously. By the fifth postoperative day she was moving about well and felt to be ready for discharge home tolerating a diet. Both her midline drain and left lower quadrant drain were removed. Her pain was managed. She took a shower. - Additional Information Discharge Diet: As Tolerated - Patient be discharged home to care of family, call on July 26 for appointment is also approximately 1 week. She will take Tylenol alternating with Motrin. She is expected to have some discharge from her lower midline incision, and has been counseled accordingly. Discharge Activity: Activity As Tolerated, No Lifting Over 10 Pounds, No Lifting/Push/Pulling, No tub bath Referrals: [facility] [Provider Group] (Call on Friday for the follow up appointment) PRASHANT NELSON MD [ACTIVE STAFF] - Home Medications: Famotidine [Pepcid 20 mg Tablet] 20 mg PO QPM 07/19/19 History of Present Illiness History of Present Illness: KIT GIBBONS is a 29 year old female Presents emergency department via ground rescue complaining of a week history of abdominal pain, periumbilical, radiating to right lower quadrant, associated with anorexia. Patient initially felt this was related to her period, which subsequently came and went, without resolution. Because of persisting pain right lower quadrant, she was seen in the emergency room where she was found to have right lower quadrant tenderness, leukocytosis of 16,[address] scan of the abdomen and pelvis performed without oral contrast revealed findings consistent with acute appendicitis, early phlegmon. Surgery was consulted, patient was advised admission. Of note patient has a remote history of appendicitis at age 10, by report, managed nonoperatively. She denies history of gastrointestinal problems, history of trauma. Physical Exam Vital Signs: Temp Pulse Resp BP Pulse Ox 97.6 F 78 16 141/85 H 100 07/24/19 18:48 07/24/19 18:48 07/24/19 18:48 07/24/19 18:48 07/24/19 18:48 Intake & Output 07/23/19 07/24/19 07/25/19 06:59 06:59 06:59 Intake Total 1550 2400 100 Output Total 80 425 70 Balance 1470 1975 30 Results Laboratory Results: WBC 12.2 10^3/uL (4.0-10.5) H 07/23/19 03:28 RBC 4.38 10^6/uL (3.72-5.28) 07/23/19 03:28 Hgb 12.6 g/dL (12.0-15.5) 07/23/19 03:28 Hct 36.9 % (36.0-47.0) 07/23/19 03:28 MCV 84 fl (80-97) 07/23/19 03:28 MCH 28.8 pg (27.0-33.4) 07/23/19 03:28 MCHC 34.3 g/dL (32.0-36.0) 07/23/19 03:28 RDW 13.2 % (11.5-14.0) 07/23/19 03:28 Plt Count 358 10^3/uL (150-450) 07/23/19 03:28 Lymph % (Auto) 12.7 % (13-45) L 07/21/19 05:42 [place] % (Auto) 6.2 % (3-13) 07/21/19 05:42 Eos % (Auto) 0.8 % (0-6) 07/21/19 05:42 Baso % (Auto) 0.5 % (0-2) 07/21/19 05:42 Absolute Neuts (auto) 10.6 10^3/uL (1.7-8.2) H 07/21/19 05:42 Absolute Lymphs (auto) 1.7 10^3/uL (0.5-4.7) 07/21/19 05:42 Absolute Monos (auto) 0.8 10^3/uL (0.1-1.4) 07/21/19 05:42 Absolute Eos (auto) 0.1 10^3/uL (0.0-0.6) 07/21/19 05:42 Absolute Basos (auto) 0.1 10^3/uL (0.0-0.2) 07/21/19 05:42 Seg Neutrophils % 79.8 % (42-78) H 07/21/19 05:42 Sodium 138.6 mmol/L (137-145) 07/23/19 03:28 Potassium 3.8 mmol/L (3.6-5.0) 07/23/19 03:28 Chloride 104 mmol/L (98-107) 07/23/19 03:28 Carbon Dioxide 25 mmol/L (22-30) 07/23/19 03:28 Anion Gap 10 (5-19) 07/23/19 03:28 BUN 9 mg/dL (7-20) 07/23/19 03:28 Creatinine 0.49 mg/dL (0.52-1.25) L 07/23/19 03:28 Est GFR ( Amer) > 60 (>60) 07/23/19 03:28 Est GFR (MDRD) Non-Af > 60 (>60) 07/23/19 03:28 Glucose 120 mg/dL (75-110) H 07/23/19 03:28 Calcium 8.4 mg/dL (8.4-10.2) 07/23/19 03:28 Total Bilirubin 0.5 mg/dL (0.2-1.3) 07/23/19 03:28 Direct Bilirubin 0.1 mg/dL (0.0-0.4) 07/23/19 03:28 Neonat Total Bilirubin Not Reportable 07/23/19 03:28 Neonat Direct Bilirubin Not Reportable 07/23/19 03:28 Neonat Indirect Bili Not Reportable 07/23/19 03:28 AST 17 U/L (14-36) 07/23/19 03:28 ALT 13 U/L (<35) 07/23/19 03:28 Alkaline Phosphatase 62 U/L (38-126) 07/23/19 03:28 Total Protein 6.2 g/dL (6.3-8.2) L 07/23/19 03:28 Albumin 3.2 g/dL (3.5-5.0) L 07/23/19 03:28 Lipase 51.9 U/L (23-300) 07/19/19 08:10 Urine Color YELLOW 07/19/19 08:35 Urine Appearance CLEAR 07/19/19 08:35 Urine pH 6.0 (5.0-9.0) 07/19/19 08:35 Ur Specific [place] 1.021 07/19/19 08:35 Urine Protein NEGATIVE mg/dL (NEGATIVE) 07/19/19 08:35 Urine Glucose (UA) NEGATIVE mg/dL (NEGATIVE) 07/19/19 08:35 Urine Ketones NEGATIVE mg/dL (NEGATIVE) 07/19/19 08:35 Urine Blood SMALL (NEGATIVE) H 07/19/19 08:35 Urine Nitrite NEGATIVE (NEGATIVE) 07/19/19 08:35 Urine Bilirubin NEGATIVE (NEGATIVE) 07/19/19 08:35 Urine Urobilinogen NEGATIVE mg/dL (<2.0) 07/19/19 08:35 Ur Leukocyte Esterase NEGATIVE (NEGATIVE) 07/19/19 08:35 Urine WBC (Auto) 1 /HPF 07/19/19 08:35 Urine RBC (Auto) 2 /HPF 07/19/19 08:35 Squamous Epi Cells Auto <1 /HPF 07/19/19 08:35 Urine Mucus (Auto) FEW /LPF 07/19/19 08:35 Urine Ascorbic Acid NEGATIVE (NEGATIVE) 07/19/19 08:35 Urine HCG, Qual NEGATIVE (NEGATIVE) 07/19/19 08:35 Impressions: Abdomen/Pelvis CT 07/19/19 09:01 IMPRESSION: Findings as above consistent and an acute appendicitis. There is no periappendiceal abscess. Abdomen X-Ray 07/23/19 00:00 IMPRESSION: 1. Findings suggest mild postoperative ileus. Abdomen/Pelvis CT 07/23/19 00:00 IMPRESSION: Postoperative ileus. No evidence of obstruction.
== END 2019-07-24 19:35 | disposition home or self-care (01) | DRG 343 ==
LOC: ER 07:30 → EH 11:55 → 2N 16:05
PROVIDERS: ADMIT Surgery; ATTEND Surgery
PROC: 0WJG4ZZ Inspection of Peritoneal Cavity, Percutaneous Endoscopic Approach (ICD-10-PCS; 2019-07-19)
PROC: 0DTJ0ZZ Resection of Appendix, Open Approach (ICD-10-PCS; principal; 2019-07-19 12:00)
DX: K35.80 Unspecified acute appendicitis (principal); K36 Other appendicitis
CPT/HCPCS: 36415; 74019; 74177; 80048; 80053; 81001; 81025; 83690; 840; 85025; 85027; 88307; 94799; 99284; C9290; J0131; J0295; J0330; J1100; J1885; J2250; J2270; J2405; J2550; J2704; J2710; J3010; J3490; J7030; J7050; J7120; S0028